=== PATIENT | male | born 1995 ===

== ENCOUNTER 2016-11-08 14:18 | Emergency (ER) | payer BC ==
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
[2016-11-08] MEDS ORDERED: Rabies Vaccine, PCEC INJ* 1 ml IM ONE (15:11)
[2016-11-08] MEDS ORDERED: Rabies Immune Globulin 10 ML* 150 UNIT/ML VIAL IM ONE (15:11)
[2016-11-08] MEDS ORDERED: Tetan/Diph/Pertus SYR(Tdap)* 0.5 ML SYR(BOOSTRIX) use SYR IM ONE (15:34)
== END 2016-11-08 15:50 | disposition home or self-care (01) ==
LOC: UCEAST 14:18
DX: Z20.3 Contact with and (suspected) exposure to rabies (principal); Z29.14 Encounter for prophylactic rabies immune globulin
CPT/HCPCS: 90375; 90471; 90472; 90675; 90715; 96372; 99201; G0463